=== PATIENT | male | born 1960 | race Caucasian/White ===

== ENCOUNTER 2017-01-21 12:41 | Emergency (ER) | payer OTHER ==
[~2017-01-21] VITALS: Ht 180.3 cm; Wt 78.0 kg
[2017-01-21] MEDS ORDERED: MOTRIN600 MG PO (14:02)
[2017-01-21] MEDS ORDERED: NORCO 7.5/321 TABLET PO (14:02)
[2017-01-21 15:01] VITALS: BP 123/80
== END 2017-01-21 15:10 | disposition home or self-care (01) ==
LOC: EME 12:41
DX: S22.31XA Fracture of one rib, right side, initial encounter for closed fracture (principal); S20.211A Contusion of right front wall of thorax, initial encounter; W01.198A Fall on same level from slipping, tripping and stumbling with subsequent striking against other object, initial encounter; Y93.89 Activity, other specified; F17.200 Nicotine dependence, unspecified, uncomplicated
CPT/HCPCS: 71101; 99281; 99284; J3010

== ENCOUNTER 2017-06-07 12:57 | Emergency (ER) | payer OTHER ==
[~2017-06-07] VITALS: Ht 180.3 cm; Wt 66.6 kg
[~2017-06-07 12:57] MED LIST: MOTRIN600 MG PO; NORCO 7.5/321 TABLET PO
[2017-06-07] MEDS ORDERED: FLOXIN OTIC SOLN5 ML BOTH EARS (13:27)
[2017-06-07] MEDS ORDERED: AUGMENTIN875 MG PO (13:27)
[2017-06-07 13:38] VITALS: BP 147/108
== END 2017-06-07 13:39 | disposition home or self-care (01) ==
LOC: EME 12:57
DX: H60.93 Unspecified otitis externa, bilateral (principal); R42 Dizziness and giddiness; R05 Cough; R09.81 Nasal congestion; F17.200 Nicotine dependence, unspecified, uncomplicated
CPT/HCPCS: 99281; 99283